=== PATIENT | female | born 1970 | race Caucasian/White ===

== ENCOUNTER 2020-02-11 13:55 | Emergency (ER) | payer OTHER, SELFPAY ==
[2020-02-11 14:13] VITALS: BP 148/81; BP 174/90; PULSE 100; PULSE 116; RESP 18; TEMP 36.1; O2SAT 100; O2SAT 99; BMI 20.9
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
[2020-02-11] MEDS: LORazepam 0.5 MG TABLET PO (14:54)
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
[2020-02-11 15:34] VITALS: BP 129/75; PULSE 77; RESP 18; TEMP 36.3; O2SAT 100
[2020-02-11 16:40] VITALS: BP 137/77; PULSE 79; RESP 18; TEMP 35.5; O2SAT 100
[2020-02-11 18:05] VITALS: TEMP 36.7
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
== END 2020-02-11 18:44 | disposition home or self-care (01) ==
PROVIDERS: Emergency Provider Emergency Medicine Emergency Medical Services; PCP Family Medicine
DX: R56.9 Unspecified convulsions (principal); T14.8XXA Other injury of unspecified body region, initial encounter; V43.52XA Car driver injured in collision with other type car in traffic accident, initial encounter; Y93.89 Activity, other specified; Y92.414 Local residential or business street as the place of occurrence of the external cause; Y99.9 Unspecified external cause status
CPT/HCPCS: 70450; 71045; 72100; 72125; 73502; 99284